=== PATIENT | female | born 1950 | race Caucasian/White ===

== ENCOUNTER → 2017-03-31 12:52 | Outpatient (CLI) | payer MEDICARE | END | disposition home or self-care (01) | LOC: D.US 03-27 15:00 | DX: I65.23 Occlusion and stenosis of bilateral carotid arteries (principal) ==

== ENCOUNTER → 2017-10-15 09:22 | Outpatient (CLI) | payer MEDICARE ==
[~2017-10-15 09:22] MED LIST: ASPIRIN EC81 M1 PO; HYDROCHLOROTH12.5 M1 PO; LIPITOR40 MG PO; LOPRESSOR25 MG PO; METOPROLOL TART25 MG PO; PLAVIX75 MG PO
[2017-10-21 10:11] VITALS: BMI 28.6
== END | disposition home or self-care (01) ==
LOC: D.CT 09:22 → D.US 10:00 → D.CT 10:00
DX: I65.23 Occlusion and stenosis of bilateral carotid arteries (principal)

== ENCOUNTER 2017-10-20 05:05 | Inpatient (IN) | payer MEDICARE ==
[2017-10-19 16:19] LABS: HEMATOCRIT 42.8 % (36.0-48.0); HEMOGLOBIN 14.7 g/dL (12-16); MCH 31.2 pg (26.0-34.0); MCHC 34.3 g/dL (31.0-37.0); MCV 90.9 fL (80.0-100.0); RBC 4.71 10x6/uL (4.00-5.40); RDW 12.8 % (11.5-14.5); WBC 8.2 10x3/uL (4.8-10.8)
[2017-10-19 16:26] LABS: INR 1.04 (0.85-1.17); PROTIME 13.2 SECONDS (11.6-15.0)
[2017-10-19 16:27] LABS: APTT 27.4 SECONDS (22.8-39.4)
[2017-10-19 16:32] LABS: APPEARANCE CLEAR (CLEAR); BILIRUBIN NEGATIVE (NEGATIVE); COLOR YELLOW (YELLOW); GLUCOSE NEGATIVE (NEGATIVE); KETONE NEGATIVE (NEGATIVE); NITRITE NEGATIVE (NEGATIVE); PROTEIN NEGATIVE (NEGATIVE); UROBILINOGEN NORMAL (NORMAL)
[2017-10-19 16:35] LABS: ANION GAP 12.3 mmol/L (8-16); BILIRUBIN - TOTAL 0.75 mg/dL (0.2-1.3); CALCIUM 8.9 mg/dL (8.5-10.1); CARBON DIOXIDE 29.5 mmol/L (21.0-32.0); CREATININE - SERUM 0.9 mg/dL (0.6-1.3); POTASSIUM - SERUM 3.8 mmol/L (3.5-5.1)
[2017-10-20] VITALS (56 sets, daily range): BP systolic 98–145; BP diastolic 40–88; BMI 26.0; BMI 28.3
[~2017-10-20] VITALS: Ht 165.1 cm; Wt 79.1 kg
--- NOTE | ~2017-10-20 | OP ---
PATIENT NAME: GARCIA THORNTON MEDICAL RECORD: [id number] :46 [facility] ADMISSION DATE:10/20/17 SURGEON: TON BLANCAS MD DATE OF OPERATION: 10/20/2017 SURGEON: Ton Blancas MD ANESTHESIA: General endotracheal, Dr. Foley. OPERATION PERFORMED: Left carotid endarterectomy with patch angioplasty. PREOPERATIVE DIAGNOSIS: Critical left internal carotid artery stenosis. POSTOPERATIVE DIAGNOSIS: Critical left internal carotid artery stenosis. INDICATION FOR OPERATION: Critical left internal carotid artery stenosis. FINDINGS AT OPERATION: Critical left internal carotid artery stenosis. There were no EEG changes with clamping or unclamping of the carotid artery. ESTIMATED BLOOD LOSS: Less than 100 cc. DESCRIPTION OF PROCEDURE: After informed consent, adequate preoperative medication evaluation, the patient was brought to the operating room, placed on the table in supine position. After induction of general endotracheal anesthesia and application of appropriate monitoring devices, the left neck and chest were prepped and draped in a sterile field, utilizing Betadine scrub, alcohol, and Betadine solution. Betadine-impregnated drape was also used. An oblique incision was made in the skin crease. Dissection carried down the fascia. Hemostasis maintained with electrocautery. Facial vein was identified and divided. Utilizing sharp dissection, the common carotid, internal and external carotid arteries were dissected free from surrounding structures, protecting the neurological structures. The patient was given a calculated dose of heparin, after 3 minutes, clamps were applied. After 2 minutes, no EEG change. The arteriotomy was made and extended with Lazo scissors. Artery underwent endarterectomy sharply. Artery underwent extensive debridement and irrigation. Utilizing a vascular patch and 7-0 Prolene suture, the arteriotomy was closed with a patch angioplasty technique. All maneuvers to remove trapped air were performed. The clamps removed sequentially. There were no EEG changes. The patient was given a calculated dose of protamine to reverse the heparin. Hemostasis was achieved. A #7 Braulio-Ramirez drain was left in the depths of wound and brought through the base of the neck. Neck was again irrigated. Instrument count and sponge count were correct times 2. Neck was closed in layers utilizing 3-0 Vicryl on the platysma, 5-0 subcuticular Monocryl on the skin. Sterile dressings were applied. The patient tolerated the procedure well and transferred to CV ICU in satisfactory condition. TRANSINT:[id number] Voice Confirmation ID: [id number] DOCUMENT ID: [id number] OPERATIVE REPORT [id number] GARCIA THORNTON EDWARD MD at 1419 CC: [id number] DICTATION DATE: 10/20/17 1012 MACHINE ATTENDANT: 10/20/17 1400 DIS IN 10/22/17 [place] [id number] [place] [id number]
--- NOTE | ~2017-10-20 | HP ---
PATIENT: GARCIA THORNTON MEDICAL RECORD: [id number] ACCOUNT: [id number] LOCATION:[facility] : 46 ADMISSION DATE: 10/20/17 HISTORY AND PHYSICAL EXAMINATION NameGARCIA THORNTON (67yo, F) ID# [id number]. Date/Time10/15/2017 01:92HMBIQ18 1950Serrust Dept.NPP_[place] [facility] ClinicProviderEDJULIANE BLANCAS MDInsuranceMed Primary: BCBS-[place] (MEDICARE REPLACEMENT/ADVANTAGE - PFFS) Insurance # : [id number] Policy/Group # : [id number] Employer Name : [employer] [facility] Prescription: CMX - Member is eligible. Chief Complaint Carotid stenosis FOLLOWING CAROTID STENOSIS 6 MO F/U W DOPPLER Patient's Care Team Primary Care Provider: JOSH FINNEGAN MD: [address] [facility] [place] [address], , Patient's Pharmacies [facility] (ERX): [address] [place] [address], , Vitals BP:128/60 sitting R arm 10/15/2017 01:01 pmHR:80REG 10/15/2017 01:02 pmHt:5 ft 8 in 10/15/2017 12:59 pmWt:167 lbs 10/15/2017 01:02 pmBMI:25.4 10/15/2017 01:02 pmAllergies Reviewed Allergies NIACIN: RashMedications Reviewed Medications Aspir- enteredKathy Wilsonatorvastatin 40 mg /16/18 filledCaremarkazithromycin 250 mg ukecuc59/26/18 filledCaremarkclopidogrel 75 mg hvxfja79/26/18 filledCaremarkCo Q- enteredKathy WilsonhydroCHLOROthiazide 12.5 mg /27/18 filledCaremarkmethylPREDNISolone 4 mg tablets in a dose pack08/31/17 filledCaremarkmetoprolol tartrate 25 mg tablet Take 1 tablet(s) twice a day by oral route.10/12/17 filledCaremarkProblems Reviewed Problems Carotid atherosclerosis, Bilateral Family History Reviewed Family History Father- Pneumonia ( age: 89)Mother- Heart failure ( age: 92)Social History Reviewed Social History Cardiology Family history of heart disease?: Y Smoking Status: Never smoker High Cholesterol: Y High blood pressure: Y Exercise level: None Alcohol intake: None Diet: Regular Occupation: Billing and posting clerks Surgical History Reviewed Surgical History HISTORY AND PHYSICAL [id number] GARCIA THORNTON Other - 2006 - hysterectomy SALES HOST History (not configured) Past Medical History Reviewed Past Medical History High Blood Pressure: Y Hyperlipidemia: Y Hypertension: Y Notes: osteoarthritis several sites Documents for Discussion N/A Screening None recorded. HPI Cerebral Vascular Disease Reported by patient. Quality: dizziness; blurred vision Duration: has noted for years carotid artery disease ROS Patient reports no fever, no night sweats, no significant weight gain, no significant weight loss, and no exercise intolera nce. She reports no dry eyes, no irritation, and no vision change. She reports no difficulty hearing and no ear pain. She reports no frequent nosebleeds and no nose/sinus problems. She reports no sore throat, no bleeding gums, no snoring, no dry mouth, no mouth ulcers, no oral abnormalities, and no teeth problems. She reports no chest pain, no arm pain on exertion, no shortness of breath when walking, no shortness of breath when lying down, no palpitations, and no known heart murmur. She reports no cough, n o wheezing, no shortness of breath, and no coughing up blood. She reports no abdominal pain, no vomiting, normal appetite, no diarrhea, not vomiting blood, no nausea, and no constipation. She reports no incontinence, no difficulty urinating, no hematuria, and no increased frequency. She reports no muscle aches, no muscle weakness, no arthralgias/joint pain, no back pain, and no swelling in the extremities. She reports no abnormal mole, no jaundice, and no rashes. She reports no loss of consciousness, no we a kness, no numbness, no seizures, no dizziness, and no headaches. She reports no depression, no sleep disturbances, feeling safe in relationship, and no alcohol abuse. She reports no fatigue. She reports no swollen glands and no bruising. She reports no ru nny nose, no sinus pressure, no itching, no hives, and no frequent sneezing. ROS as noted in the HPI Physical Exam Patient is a 67-year-old female. Constitutional: General Appearance well nourished and developed and healthy-appearing. Level of Distress NAD. Ambulation ambulating normally. Ears, Nose, Throat: Ears grossly normal hearing. Nose no external nose lesion. Lips, Teeth, and Gums no mouth or lip ulcers. Oropharynx: moist mucous membranes. Cardiovascular: Apical Impulse not displaced or no thrill. Heart Auscultation normal s1 and s2; no murmurs, rubs, or gallops; and RRR. Arterial Pulses no abdominal aorta bruits, femoral bruits, or popliteal bruits and 2+ bilateral, carotid 2+ bilateral, femoral 2+ bilateral, popliteal 2+ bilateral, and dorsalis pedis 2+ bilateral. Edema no edema or varicosities. HISTORY AND PHYSICAL [id number] GARCIA THORNTON Lungs: Repiratory Effort no dyspnea. Percussion no hyperresonance or dullness or flatness. Auscultation no wheezing, rhonchi, or rales / crackles and breathing sounds normal, good air movement, and CTA except as noted. Abdomen: Bowl Sounds normal. Inspection and Palpation no tenderness, guarding, masses, or rebound tenderness and soft and non-distended. Liver non-tender and no hepatomegaly. Spleen non-tender and no splenomegaly. Hernia none palpable. Musculoskeletal System: Gait And Stance normal gait and stance. Digits and Nails normal nails and no cyanosis. Joints, Bones, and Muscles normal strength and movement of all extremities. Neurologic: Cranial Nerves grossly intact. Reflexes DTRs 2+ bilaterally throughout. Sensation grossly intact. Lymph Nodes: Lymph Nodes no cervical LAD, supraclavicular LAD, axillary LAD, or inguinal LAD. Eyes: Lids and Conjunctivae no discharge or pallor and non-injected. Pupils PERRLA. Cornea grossly intact. EOM EOMI. Lens clear. Sclera non-icteric. Neck: Neck no masses or enlarged lymph nodes and supple, trachea midline, and carotid bruits (SOFT RT highPitched left ). Thyroid no enlargement or nodules and non-tender. Skin: Inspection and Palpation no rash, lesions, ulcers, jaundice, or abnormal nevi. Assessment / Plan severe bilateral carotid artery stenosis 1. Carotid artery stenosis I65.29: Occlusion and stenosis of unspecified carotid artery Discussion Notes scheduled for left carotid endarterectomy I have discussed her disease process with her in detail as well as the alternative methods of treatment we discussed left carotid endarterectomy including the expected benefits and risk which included bleeding, infection, stroke, , and the imponderab les. She understands all of the above and wishes to proceed with planned surgery. We will schedule her right carotid 6 weeks to 3 months after her left carotid endarterectomy JUDD BLANCAS MD at 1743 CC: [id number] DICTATION DATE: 10/15/17 1350 EGG SEPARATOR: DM 10/16/17 1014 PRE IN [place] [id number] [place] [address]
[2017-10-21] VITALS (38 sets, daily range): BP systolic 94–148; BP diastolic 38–74; Ht 165.1 cm; Wt 79.1 kg
[2017-10-22] VITALS (10 sets, daily range): BP systolic 94–140; BP diastolic 46–74
== END 2017-10-22 11:42 | disposition home or self-care (01) | DRG 39 ==
LOC: D.CVICU 05:05 → D.SDCHOLD 05:05 → D.CVICU 10:15
PROVIDERS: Internal Medicine Cardiovascular Disease
PROC: 03UL0JZ Supplement Left Internal Carotid Artery with Synthetic Substitute, Open Approach (ICD-10-PCS; 2017-10-20)
PROC: 03CL0ZZ Extirpation of Matter from Left Internal Carotid Artery, Open Approach (ICD-10-PCS; principal; 2017-10-20 07:30)
DX: I65.23 Occlusion and stenosis of bilateral carotid arteries (principal); I10 Essential (primary) hypertension; E78.5 Hyperlipidemia, unspecified

== ENCOUNTER 2018-04-21 05:00 | Inpatient (IN) | payer MEDICARE ==
[2018-04-19 10:12] LABS: HEMATOCRIT 42.8 % (36.0-48.0); HEMOGLOBIN 14.8 g/dL (12-16); MCH 30.9 pg (26.0-34.0); MCHC 34.6 g/dL (31.0-37.0); MCV 89.4 fL (80.0-100.0); RBC 4.79 10x6/uL (4.00-5.40); RDW 14.1 % (11.5-14.5); WBC 9.6 10x3/uL (4.8-10.8)
[2018-04-19 10:24] LABS: INR 0.95 (0.85-1.17); PROTIME 12.3 SECONDS (11.6-15.0)
[2018-04-19 10:36] LABS: APPEARANCE CLEAR (CLEAR); BILIRUBIN NEGATIVE (NEGATIVE); COLOR STRAW (YELLOW); GLUCOSE NEGATIVE (NEGATIVE); KETONE NEGATIVE (NEGATIVE); NITRITE NEGATIVE (NEGATIVE); PROTEIN NEGATIVE (NEGATIVE); UROBILINOGEN NORMAL (NORMAL)
[2018-04-19 10:43] LABS: ALBUMIN 4.2 g/dL (3.4-5.0); ALKALINE PHOSPHATASE 69 U/L (46-116); ALT (SGPT) 29 U/L (10-68); BILIRUBIN - TOTAL 0.44 mg/dL (0.2-1.3); CALC OSMOLALITY 274 mosm/kg (275-300); CALCIUM 9.2 mg/dL (8.5-10.1); CARBON DIOXIDE 29.5 mmol/L (21.0-32.0); CHLORIDE - SERUM 98 mmol/L (98-107); CREATININE - SERUM 0.8 mg/dL (0.6-1.3); GLUCOSE 110 mg/dL (74-106); PROTEIN - SERUM 8.2 g/dL (6.4-8.2); SODIUM 136 mmol/L (136-145); UREA NITROGEN 19 mg/dL (7-18); eGFR NON AFRICAN AMERICAN 75 mL/min (90-120)
[2018-04-21] VITALS (53 sets, daily range): BP systolic 106–148; BP diastolic 43–74; BMI 25.8; BMI 24.0
[~2018-04-21] VITALS: Ht 165.1 cm; Wt 61.2 kg
--- NOTE | ~2018-04-21 | HP ---
PATIENT: GARCIA THORNTON MEDICAL RECORD: [id number] ACCOUNT: [id number] LOCATION[facility] [place] : 46 ADMISSION DATE: 04/21/18 PCP: JUDD BLANCAS MD HISTORY AND PHYSICAL EXAMINATION GARCIA Mccauley (67yo, F) ID# [id number]. Date/Time04/15/2018 10:64YCZXB11/04/1951Service Dept.NPP_[facility] ClinicProviderEDJULIANE BLANCAS MDInsuranceMed Primary: BCBS-[place] (MEDICARE REPLACEMENT/ADVANTAGE - PFFS) Insurance # : [id number] Policy/Group # : [id number] Employer Name : [employer] Prescription: CMX - Member is eligible. Chief Complaint Followup: Carotid atherosclerosis s/p LCEA 10/20/17 preop for RCEA 2month f/u Patient's Care Team Primary Care Provider: JOSH FINNEGAN MD: [address] [facility] [place] [address], , Patient's Pharmacies [facility] [address] ([address]): [address] [place] [address], , Vitals BP:102/68 sitting R arm 04/15/2018 11:06 am 106/70 sitting L arm 04/15/2018 11:06 amHR:80/reg 04/15/2018 11:06 amHt:5 ft 8 in 04/15/2018 11:00 amWt:154 lbs 04/15/2018 11:02 amBMI:23.4 04/15/2018 11:02 amAllergies Reviewed Allergies NIACIN: RashMedications Reviewed Medications Aspir- enteredKathy Wilsonatorvastatin 40 mg pegqyt96/30/18 filledCaremarkazithromycin 250 mg /25/18 filledCaremarkclopidogrel 75 mg /23/18 filledCaremarkCo Q- enteredKathy WilsonhydroCHLOROthiazide 12.5 mg /29/18 filledCaremarkhydroCHLOROthiazide 12.5 mg nuatoz00/02/18 filledCaremarkmethylPREDNISolone 4 mg tablets in a dose pack12/28/17 filledCaremarkmetoprolol tartrate 25 mg tablet Take 1 tablet(s) twice a day by oral route.03/28/18 filledCaremarkVaccines Reviewed Vaccines Some vaccines listed in Document: #[id number] could not be added to this patient's chart. Please review this document and add these vaccines to the patient's chart manually as needed. Problems Reviewed Problems Carotid atherosclerosis, Bilateral Family History Reviewed Family History Father- Pneumonia ( age: 89)Mother- Heart failure ( age: 92)Social History Reviewed Social History Cardiology Family history of heart disease?: Y HISTORY AND PHYSICAL [id number] GARCIA THORNTON Smoking Status: Never smoker High Cholesterol: Y High blood pressure: Y Exercise level: None Alcohol intake: None Diet: Regular Occupation: Billing and posting clerks Surgical History Reviewed Surgical History Carotid Endarterectomy - 10/20/2017 - LEFT Other - 2007 - hysterectomy 10/16/17 no PA required for 10/20/17 sx per [facility] @ [facility]. Ref #: [id number]. *SJ TELEPHONE OPERATOR RECEPTIONIST History (not configured) Past Medical History Reviewed Past Medical History High Blood Pressure: Y Hyperlipidemia: Y Hypertension: Y Notes: osteoarthritis several sites Documents for Discussion N/A Screening None recorded. HPI Cerebral Vascular Disease Reported by patient. Associated Symptoms: no headache; no nausea; no vomiting; no tinnitus; no difficulty speaking; no lethargy; no fever; no chills; no palpitations; no syncope; no loss of consciousness Severe right internal carotid artery stenosis ROS Patient reports no fever, no night sweats, no significant weight gain, no significant weight loss, and no ex ercise intolerance. She reports no dry eyes, no irritation, and no vision change. She reports no difficulty hearing and no ear pain. She reports no frequent nosebleeds and no nose/sinus problems. She reports no sore throat, no bleeding gums, no snoring, n o dry mouth, no mouth ulcers, no oral abnormalities, and no teeth problems. She reports no chest pain, no arm pain on exertion, no shortness of breath when walking, no shortness of breath when lying down, no palpitations, and no known heart murmur. She rep o rts no cough, no wheezing, no shortness of breath, and no coughing up blood. She reports no abdominal pain, no vomiting, normal appetite, no diarrhea, not vomiting blood, no nausea, and no constipation. She reports no incontinence, no difficulty urinating , no hematuria, and no increased frequency. She reports no muscle aches, no muscle weakness, no arthralgias/joint pain, no back pain, and no swelling in the extremities. She reports no abnormal mole, no jaundice, and no rashes. She reports no loss of consc i ousness, no weakness, no numbness, no seizures, no dizziness, and no headaches. She reports no depression, no sleep disturbances, feeling safe in relationship, and no alcohol abuse. She reports no fatigue. She reports no swollen glands and no bruising. Sh e reports no runny nose, no sinus pressure, no itching, no hives, and no frequent sneezing. ROS as noted in the HPI Physical Exam HISTORY AND PHYSICAL [id number] ROXYKOLBYGARCIAAndre SCHAEFER Patient is a 67-year-old female. Constitutional: General Appearance well nourished and developed and healthy-appearing. Level of Distress NAD. Ambulation ambulating normally. Ears, Nose, Throat: Ears grossly normal hearing. Nose no external nose lesion. Lips, Teeth, and Gums no mouth or lip ulcers. Oropharynx: moist mucous membranes. Cardiovascular: Apical Impulse not displaced or no thrill. Heart Auscultation normal s1 and s2; no murmurs, rubs, or gallops; and RRR. Arterial Pulses no abdominal aorta bruits, femoral bruits, or popliteal bruits and 2+ bilateral, carotid 2+ bilateral, femoral 2+ bilateral, popliteal 2+ bilateral, and dorsalis pedis 2+ bilateral. Edema no edema or varicosities. Lungs: Repiratory Effort no dyspnea. Percussion no hyperresonance or dullness or flatness. Auscultation no wheezing, rhonchi, or rales / crackles and breathing sounds normal, good air movement, and CTA except as noted. Abdomen: Bowl Sounds normal. Inspection and Palpation no tenderness, guarding, masses, or rebound tenderness and soft and non-distended. Liver non-tender and no hepatomegaly. Spleen non-tender and no splenomegaly. Hernia none palpable. Musculoskeletal System: Gait And Stance normal gait and stance. Digits and Nails normal nails and no cyanosis. Joints, Bones, and Muscles normal strength and movement of all extremities. Neurologic: Cranial Nerves grossly intact. Reflexes DTRs 2+ bilaterally throughout. Sensation grossly intact. Lymph Nodes: Lymph Nodes no cervical LAD, supraclavicular LAD, axillary LAD, or inguinal LAD. Eyes: Lids and Conjunctivae no discharge or pallor and non-injected. Pupils PERRLA. Cornea grossly intact. EOM EOMI. Lens clear. Sclera non-icteric. Neck: Neck no masses or enlarged lymph nodes and supple, trachea midline, and carotid bruits (SOFT RT highPitched left ). Thyroid no enlargement or nodules and non-tender. Skin: Inspection and Palpation no rash, lesions, ulcers, jaundice, or abnormal nevi. Assessment / Plan Severe right internal carotid artery stenosis 1. Carotid atherosclerosis I65.23: Occlusion and stenosis of bilateral carotid arteries Discussion Notes Severe right internal carotid artery stenosis The patient would like to proceed with right carotid endarterectomy .I have discussed her disease process with her in detail as well as alternative methods of treatment. We discussed [facility] carotid endarterectomy including the expected benefits and risk which include bleeding, infection, stroke, , and the imponderables. She understands all of the above and wishes to proceed with right HISTORY AND PHYSICAL [id number] GARCIA THORNTON carotid endarterectomy. JUDD ROA MD at 0758 CC: [id number] DICTATION DATE: 04/15/18 1030 FUNDRAISING DIRECTOR: ARMANDO 04/19/18 0943 ADM IN [place] [id number] [place] [address]
--- NOTE | ~2018-04-21 | MORECARE ---
CASE MANAGEMENT DISCHARGE SUMMARY PATIENT: GARCIA THORNTON UNIT: [id number] ADM DATE: 04/21/18 AGE: 67 : 48 SEX: F ROOM/BED: D.[facility] AUTHOR: MARIIA,DOC PHYSICIAN: REFERRING PHYSICIAN: JUDD BLANCAS MD DATE OF SERVICE: 04/22/18 Discharge Plan Patient Name: GARCIA THORNTON Facility: [facility]:[place] : 1950 Planned Disposition: Home Anticipated Discharge Date: Discharge Date: Expected LOS: Initial Reviewer: [email or web address] Initial Review Date: 04/22/2018 Generated: 04/22/18 11:49 am Comments DCP- Discharge Planning Updated by [email or web address]: Nicole Andrews on 04/22/18 9:[address] Patient Name: GARCIA THORNTON Admission Status: Urgent Accout number: [id number] Admission Date: 04-21-2018 : 1950 Admission Diagnosis: Attending: JUDD BLANCAS Current LOS: 1 Anticipated DC Date: Planned Disposition: Home Primary Insurance: [employer] [facility] PF Discharge Planning Comments: CM met with patient at bedside after obtaining verbal consent. Patient states she plans on returning home after discharge with her . Patient states she will have family transport him home via private vehicle. Patient denies any discharge needs at this time. CM will continue to follow and assist as needed for discharge planning / needs. Arboreal Scientist: Nicole Andrews DCPIA - Discharge Planning Initial Assessment Updated by [email or web address]: Nicole Andrews on 04/22/18 10:41 am * Is the patient Alert and Oriented? Yes * How many steps to enter\exit or inside your home? * PCP ASHLEIGH THORNTON APN * Pharmacy [facility] * Preadmission Environment Home with Family * ADLs Independent * Equipment None * Verbal permission to speak to the caregivers and representatives has been obtained from the patient. N/A * Community resources currently utilized None * Additional services required to return to the preadmission environment? No * Can the patient safely return to the preadmission environment? Yes * Has this patient been hospitalized within the prior 30 days at any hospital? No Last DP export: 04/22/18 9:41 Patient Name: GARCIA THORNTON Page [id number] at 1049 All edits/amendments must be made on the electronic document DICTATION DATE: 04/22/181047 COMPUTING TUTOR: ARMANDO 04/22/181047 RPT#: [id number] DC DATE: STATUS: ADM IN [facility] [address] [place] [address] END OF REPORT
--- NOTE | ~2018-04-21 | MORECARE ---
CASE MANAGEMENT DISCHARGE SUMMARY PATIENT: GARCIA THORNTON UNIT: [id number] ADM DATE: 04/21/18 AGE: 67 : 48 SEX: F ROOM/BED: [facility] AUTHOR: SKYLA CHIANG PHYSICIAN: REFERRING PHYSICIAN: JUDD BLANCAS MD DATE OF SERVICE: 04/22/18 Discharge Plan Patient Name: GARCIA THORNTON Facility: [facility]:[place] : 1950 Planned Disposition: Home Anticipated Discharge Date: Discharge Date: Expected LOS: Initial Reviewer: [email or web address] Initial Review Date: 04/22/2018 Generated: 04/22/18 11:41 am Patient Name: GARCIA THORNTON Page [id number] at 1041 All edits/amendments must be made on the electronic document DICTATION DATE: 04/22/18 104 BOILERMAKER INDUSTRIAL BOILERS: ARMANDO 04/22/18 1040 RPT#: [id number] DC DATE: STATUS: ADM IN [facility] [address] [place] [address] END OF REPORT
--- NOTE | ~2018-04-21 | OP ---
PATIENT NAME: GARCIA THORNTON MEDICAL RECORD: [id number] :46 [facility] ADMISSION DATE:04/21/18 SURGEON: TON BLANCAS MD DATE OF OPERATION: 04/21/2018 SURGEON: Ton Blancas MD ANESTHESIA: General endotracheal, Dr. Foley. OPERATION PERFORMED: Right carotid endarterectomy with patch angioplasty. PREOPERATIVE DIAGNOSIS: Severe right internal carotid artery stenosis. POSTOPERATIVE DIAGNOSIS: Severe right internal carotid artery stenosis. INDICATION FOR OPERATION: Severe right internal carotid artery stenosis. FINDINGS AT OPERATION: The patient required a shunt due to marked EEG changes with clamping of the carotid artery. There was severe right internal carotid artery stenosis. ESTIMATED BLOOD LOSS: Less than 100 mL. DESCRIPTION OF PROCEDURE: After informed consent, adequate preoperative medication evaluation, the patient was brought to the operating room, placed on the table in the supine position. After induction of general endotracheal anesthesia and application of appropriate monitoring devices, the right neck and chest prepped and draped in a sterile field, utilizing Betadine scrub, alcohol, and Betadine solution. Betadine-impregnated drape was also used. An oblique incision was made in the skin crease. Dissection was carried down to the fascia. Hemostasis was maintained with electrocautery. Facial vein was identified and divided. Utilizing sharp dissection, the common carotid, internal and external carotid arteries were dissected free of surrounding tissues, protecting the neurological structures. The patient was given a calculated dose of heparin. After 3 minutes, clamps were applied. After 10 seconds, the patient had marked EEG changes; therefore, the clamps were removed. A shunt was prepped. The patient then underwent clamping of the carotid artery. Arteriotomy extended with Lazo scissors rapidly and the shunt placed with EEG returning to normal within 5 seconds. The patient then underwent endarterectomy sharply. Artery underwent extensive debridement and irrigation. Utilizing a CorMatrix vascular patch, a running 7-0 Prolene suture, the arteriotomy was closed with a patch angioplasty technique. The shunt was removed and the last 3 stitches completed. The clamps were removed with EEG returning to normal. The patient was given a calculated dose of protamine to reverse the heparin. Hemostasis was assured. Neck was irrigated with copious amounts of antibiotic solution and normal saline. A #7 Braulio-Ramirez drain was left in the depths of wound and brought out through the base of the neck. Neck was again irrigated. Instrument count and sponge count were correct times 2. Neck was closed in layers utilizing 3-0 Vicryl on the platysma, 5-0 subcuticular Monocryl on the skin. Sterile dressings were applied. The patient tolerated procedure well and transferred to cardiovascular recovery in satisfactory condition. TRANSINT:[id number] Voice Confirmation ID: [id number] DOCUMENT ID: [id number] OPERATIVE REPORT [id number] GARCIA THORNTON EDWARD MD at 1216 CC: [id number] DICTATION DATE: 04/21/18 1041 INFANT TEACHER: 04/21/18 1225 DIS IN 04/23/18 [place] [address] [place] [address]
--- NOTE | ~2018-04-21 | MORECARE ---
CASE MANAGEMENT DISCHARGE SUMMARY PATIENT: GARCIA THORNTON UNIT: [id number] ADM DATE: 04/21/18 AGE: 67 : 46 SEX: F ROOM/BED: D[facility] AUTHOR: MARIIA,DOC PHYSICIAN: REFERRING PHYSICIAN: JUDD BLANCAS MD DATE OF SERVICE: 04/23/18 Discharge Plan Patient Name: GARCIA THORNTON Facility: [facility]:[place] : 1950 Planned Disposition: Home Anticipated Discharge Date: Discharge Date: 04/23/2018 Expected LOS: Initial Reviewer: [email or web address] Initial Review Date: 04/22/2018 Generated: 04/23/18 6:17 pm Comments DCP- Discharge Planning Updated by [email or web address]: Nicole Andrews on 04/23/18 8:[address] IMM EXPLAINED AND SERVED 04/23/18 @[facility]. Patient denies any needs at this time. CM will continue to follow and assist as needed with discharge planning / needs. DCP- Discharge Planning Updated by [email or web address]: Nicole Andrews on 04/22/18 9:[address] Patient Name: GARCIA THORNTON Admission Status: Urgent Accout number: [id number] Admission Date: 04-21-2018 : 1950 Admission Diagnosis: Attending: JUDD BLANCAS Current LOS: 1 Anticipated DC Date: Planned Disposition: Home Primary Insurance: [employer] [facility] [employer] [facility] Discharge Planning Comments: CM met with patient at bedside after obtaining verbal consent. Patient states she plans on returning home after discharge with her . Patient states she will have family transport him home via private vehicle. Patient denies any discharge needs at this time. CM will continue to follow and assist as needed for discharge planning / needs. Continuous Improvement Consultant: Nicole Andrews DCPIA - Discharge Planning Initial Assessment Updated by [email or web address]: Nicole Andrews on 04/22/18 10:41 am * Is the patient Alert and Oriented? Yes * How many steps to enter\exit or inside your home? * PCP ASHLEIGH THORNTON PLEATING SUPERVISOR * Pharmacy [facility] * Preadmission Environment Home with Family * ADLs Independent * Equipment None * Verbal permission to speak to the caregivers and representatives has been obtained from the patient. N/A * Community resources currently utilized None * Additional services required to return to the preadmission environment? No * Can the patient safely return to the preadmission environment? Yes * Has this patient been hospitalized within the prior 30 days at any hospital? No Coverage Notice Reviewer: [email or web address] Sam Andrews Notice Issued Date-Time: 04/23/2018 8:42 Notice Type: IM Discharge Notice Notice Delivered To: Patient Relationship to Patient: Self Appetizer Packer Name: Delivery Method: HAND - Hand Delivered Kyra Days: Prior Verbal Notification: Recipient Understood Notice: Yes Recipient Signature: Yes Med Rec Note Co-signed by Attending: Coverage Notice Comment: Last DP export: 04/23/18 8:48 Patient Name: GARCIA THORNTON Page [id number] at 1717 All edits/amendments must be made on the electronic document DICTATION DATE: 04/23/181716 BOX BLANK MACHINE OPERATOR: ARMANDO 04/23/181716 RPT#: [id number] DC DATE:04/23/18 STATUS: DIS IN [facility] [address] [place] [address] END OF REPORT
--- NOTE | ~2018-04-21 | MORECARE ---
CASE MANAGEMENT DISCHARGE SUMMARY PATIENT: GARCIA THORNTON UNIT: [id number] ADM DATE: 04/21/18 AGE: 67 : 46 SEX: F [facility] AUTHOR: MARIIA,DOC PHYSICIAN: REFERRING PHYSICIAN: JUDD BLANCAS MD DATE OF SERVICE: 04/23/18 Discharge Plan Patient Name: GARCIA THORNTON Facility: [facility]:[place] : 1950 Planned Disposition: Home Anticipated Discharge Date: Discharge Date: Expected LOS: Initial Reviewer: [email or web address] Initial Review Date: 04/22/2018 Generated: 04/23/18 10:48 am Comments DCP- Discharge Planning Updated by [email or web address]: Nicole Andrews on 04/23/18 8:[address] IMM EXPLAINED AND SERVED 04/23/18 @[facility]. Patient denies any needs at this time. CM will continue to follow and assist as needed with discharge planning / needs. DCP- Discharge Planning Updated by [email or web address]: Nicole Andrews on 04/22/18 9:[address] Patient Name: GARCIA HTORNTON Admission Status: Urgent Accout number: [id number] Admission Date: 04-21-2018 : 1950 Admission Diagnosis: Attending: JUDD BLANCAS Current LOS: 1 Anticipated DC Date: Planned Disposition: Home Primary Insurance: [employer] [facility] Discharge Planning Comments: CM met with patient at bedside after obtaining verbal consent. Patient states she plans on returning home after discharge with her . Patient states she will have family transport him home via private vehicle. Patient denies any discharge needs at this time. CM will continue to follow and assist as needed for discharge planning / needs. Vehicle Dismantler: Nicole Andrews DCPIA - Discharge Planning Initial Assessment Updated by [email or web address]: Nicole Andrews on 04/22/18 10:41 am * Is the patient Alert and Oriented? Yes * How many steps to enter\exit or inside your home? * PCP ASHLEIGH KIMBLEN * Pharmacy [facility] * Preadmission Environment Home with Family * ADLs Independent * Equipment None * Verbal permission to speak to the caregivers and representatives has been obtained from the patient. N/A * Community resources currently utilized None * Additional services required to return to the preadmission environment? No * Can the patient safely return to the preadmission environment? Yes * Has this patient been hospitalized within the prior 30 days at any hospital? No Coverage Notice Reviewer: [id number] Sam Andrews Notice Issued Date-Time: 04/23/2018 8:42 Notice Type: IM Discharge Notice Notice Delivered To: Patient Relationship to Patient: Self Heel Coverer Machine Operator Name: Delivery Method: HAND - Hand Delivered Kyra Days: Prior Verbal Notification: Recipient Understood Notice: Yes Recipient Signature: Yes Med Rec Note Co-signed by Attending: Coverage Notice Comment: Last DP export: 04/22/18 9:49 Patient Name: GARCIA THORNTON Page [id number] at 0948 All edits/amendments must be made on the electronic document DICTATION DATE: 04/23/18947 TESTER PRINTED CIRCUIT BOARDS: ARMANDO 04/23/18947 RPT#: [id number] DC DATE: STATUS: ADM IN [facility] [address] [place] [address] END OF REPORT
[~2018-04-21 05:00] MED LIST changes: +ZYRTEC10 MG PO
[2018-04-22] VITALS (60 sets, daily range): BP systolic 97–141; BP diastolic 44–76; Ht 165.1 cm; Wt 61.2 kg
[2018-04-23] VITALS (9 sets, daily range): BP systolic 92–139; BP diastolic 43–67
== END 2018-04-23 10:05 | disposition home or self-care (01) | DRG 39 ==
LOC: D.SDCHOLD 05:00 → D.CVICU 09:11
PROVIDERS: Internal Medicine Cardiovascular Disease
PROC: 03UK0JZ Supplement Right Internal Carotid Artery with Synthetic Substitute, Open Approach (ICD-10-PCS; 2018-04-21)
PROC: 03CK0ZZ Extirpation of Matter from Right Internal Carotid Artery, Open Approach (ICD-10-PCS; principal; 2018-04-21 07:30)
DX: I65.23 Occlusion and stenosis of bilateral carotid arteries (principal); I10 Essential (primary) hypertension; E78.5 Hyperlipidemia, unspecified; M19.90 Unspecified osteoarthritis, unspecified site

== ENCOUNTER → 2018-12-21 09:59 | Outpatient (CLI) | payer MEDICARE ==
[2018-04-22 10:01] VITALS: BMI 22.4
== END | disposition home or self-care (01) ==
LOC: D.US 12-15 09:30
PROVIDERS: ATTEND Internal Medicine Cardiovascular Disease
DX: I65.23 Occlusion and stenosis of bilateral carotid arteries (principal)

== ENCOUNTER 2019-04-06 15:20 | Emergency (ER) | payer MEDICARE ==
[2018-04-22 10:01] VITALS: Ht 165.1 cm; Wt 67.7 kg
[~2019-04-06] VITALS: Ht 165.1 cm; Wt 67.7 kg
[2019-04-06 16:10] LABS: BASOPHILS 0.2 % (0-2); EOSINOPHILS 2.8 % (0-7); HEMATOCRIT 41.9 % (36.0-48.0); HEMOGLOBIN 14.3 g/dL (12-16); IMMATURE GRANULOCYTES 0.2 % (0-5); LYMPHOCYTES 37.2 % (15-50); MCH 31.2 pg (26.0-34.0); MCHC 34.1 g/dL (31.0-37.0); MCV 91.3 fL (80.0-100.0); MEAN PLATELET VOLUME 9.4 fL (7.4-10.4); MONOCYTES 9.5 % (2-11); NEUTROPHILS 50.1 % (40-80); PLATELET COUNT 264 10x3/uL (130-400); RBC 4.59 10x6/uL (4.00-5.40); RDW 13.7 % (11.5-14.5); WBC 9.3 10x3/uL (4.8-10.8)
[2019-04-06 16:25] LABS: ALBUMIN 3.8 g/dL (3.4-5.0); ALKALINE PHOSPHATASE 87 U/L (46-116); ALT (SGPT) 66 U/L (10-68); BILIRUBIN - TOTAL 0.52 mg/dL (0.2-1.3); CALC OSMOLALITY 273 mosm/kg (275-300); CALCIUM 9.2 mg/dL (8.5-10.1); CARBON DIOXIDE 29.5 mmol/L (21.0-32.0); CHLORIDE - SERUM 99 mmol/L (98-107); CREATININE - SERUM 0.7 mg/dL (0.6-1.3); GLUCOSE 105 mg/dL (74-106); POTASSIUM - SERUM 4.2 mmol/L (3.5-5.1); PROTEIN - SERUM 7.5 g/dL (6.4-8.2); SODIUM 137 mmol/L (136-145); UREA NITROGEN 12 mg/dL (7-18); eGFR NON AFRICAN AMERICAN 88 mL/min (90-120)
[2019-04-06 16:28] LABS: TROPONIN-I < 0.017 ng/mL (0.000-0.060)
[2019-04-06] MEDS ORDERED: NORVASC10 MG PO (18:50)
[2019-04-06 19:34] VITALS: BP 161/63
== END 2019-04-06 19:34 | disposition home or self-care (01) ==
LOC: D.ER 15:20
PROVIDERS: Emergency Medicine
DX: R22.1 Localized swelling, mass and lump, neck (principal); I10 Essential (primary) hypertension; M54.6 Pain in thoracic spine; E78.5 Hyperlipidemia, unspecified